=== PATIENT | female | born 1995 | race American Indian/Alaskan Native ===

== ENCOUNTER 2020-05-06 15:17 | Emergency (ER) | payer BC ==
[2020-05-06 16:30] LABS: Bacteria,Urine 3+ /HPF (Negative); Bilirubin,Urine NEG (Negative); Blood,Urine SM (Negative); Color,Urine Yellow (Yellow); Mucus,Urine 2+ /HPF; Urobilinogen,Urine < 2.0 mg/dL (<2.0)
[2020-05-06 16:41] LABS: HCG Qualitative,Urine Negative (Negative)
[2020-05-06 18:19] LABS: Basophils % (Auto) 0.4 % (0.0-1.8); Eosinophils % (Auto) 0.5 % (0.0-4.3); Hematocrit 36.4 % (30.3-42.9); Lymphocytes # (Auto) 2.6 K/mm3 (1.2-5.4); Lymphocytes % (Auto) 26.5 % (13.4-35.0); Mean Corpuscular HGB Conc 33 % (30-34); Mean Corpuscular Volume 84 fl (79-97); Monocytes # (Auto) 0.6 K/mm3 (0.0-0.8); Platelet Count 225 K/mm3 (140-440); Red Blood Count 4.36 M/mm3 (3.65-5.03); Red Cell Distribution Width 13.4 % (13.2-15.2)
[2020-05-06 18:24] LABS: Alanine Aminotransferase 12 units/L (7-56); Albumin 4.1 g/dL (3.9-5); Blood Urea Nitrogen 10 mg/dL (7-17); Calcium 9.7 mg/dL (8.4-10.2); Hemolysis Index 3
[2020-05-06 18:25] LABS: BUN/Creatinine Ratio 14
[2020-05-06] MEDS ORDERED: IBUPROFEN 600 MG TAB PO ONE (19:39)
[2020-05-06] MEDS ORDERED: ACETAMINOPHEN 500 MG TAB PO ONE (19:39)
--- NOTE | 2020-05-06 19:47 | Emergency Department Report ---
ED General Adult HPI - General Chief complaint: Abdominal Pain Stated complaint: RT LOWER PAIN/BACK PAIN Source: patient Mode of arrival: Ambulatory Limitations: No Limitations - History of Present Illness Initial comments: Patient is 24-year-old -[place] female with a history of hypertension and PE who presents to the ED with complaint of acute onset persistent nontrau matic left-sided mid posterior thoracic pain that radiates to the low back for the last 2 days. Patient states that the pain is worse with any movement or palpation of the low back. Patient states that she performs heavy lifting a lot at work and suspect that she may have strained the back due to heavy lifting but was unsure. Patient denies abdominal pain, nausea, vomiting, dizziness, syncope, fall, traumatic injury, numbness and tingling or weakness of lower extremities bilaterally, urinary frequency and urgency, dysuria, vaginal bleeding, vaginal discharge, chest pain or shortness of breath and neck pain. MD Complaint: left flank pain; left mid-posterior thoracic and low back pain -: Sudden, days(s) (2) Location: back Radiation: back (lower) Severity scale (0 -10): 7 Quality: aching, sharp Consistency: constant Improves with: none Worsens with: movement Associated Symptoms: denies other symptoms. denies: confusion, chest pain, cou gh, diaphoresis, fever/chills, headaches, loss of appetite, malaise, nausea/vomiting, rash, seizure, shortness of breath, syncope, weakness Treatments Prior to Arrival: none - Related Data Previous Rx's Medication Instructions Recorded Last Taken Type Cyclobenzaprine [Flexeril] 10 mg PO Q8H PRN #15 tablet 05/06/20 Unknown Rx Naproxen 500 mg PO Q12H PRN #30 tablet 05/06/20 Unknown Rx Allergies Allergy/AdvReac Type Severity Reaction Status Date / Time peach Allergy Hives Verified 05/06/20 15:26 Penicillins Allergy Hives Verified 05/06/20 15:26 ED Review of Systems ROS: Stated complaint: RT LOWER PAIN/BACK PAIN Other details as noted in HPI Constitutional: denies: chills, fever Eyes: denies: eye pain, eye discharge, vision change ENT: denies: ear pain, throat pain Respiratory: denies: cough, shortness of breath, wheezing Cardiovascular: denies: chest pain, palpitations Endocrine: no symptoms reported Gastrointestinal: denies: abdominal pain, nausea, diarrhea Genitourinary: denies: urgency, dysuria, discharge Musculoskeletal: back pain (mid posterior thoracic and lower back pain), arthralgia. denies: joint swelling Skin: denies: rash, lesions Neurological: denies: headache, weakness, paresthesias Psychiatric: denies: anxiety, depression Hematological/Lymphatic: denies: easy bleeding, easy bruising ED Past Medical Hx - Past Medical History Hx Hypertension: Yes Hx Pulmonary Embolism: Yes Additional medical history: BLOOD CLOTS IN LUNGS - Surgical History Additional Surgical History: C SECTION - Social History Smoking Status: Current Every Day Smoker Substance Use Type: None - Medications Home Medications: Home Medications Medication Instructions Recorded Confirmed Last Taken Type Cyclobenzaprine [Flexeril] 10 mg PO Q8H PRN #15 tablet 05/06/20 Unknown Rx Naproxen 500 mg PO Q12H PRN #30 tablet 05/06/20 Unknown Rx ED Physical Exam - General Limitations: No Limitations General appearance: alert, in no apparent distress - Head Head exam: Present: atraumatic, normocephalic, normal inspection - Eye Eye exam: Present: normal appearance, PERRL, EOMI Pupils: Present: normal accommodation - ENT ENT exam: Present: normal exam, normal orophraynx, mucous membranes moist, TM's normal bilaterally, normal external ear exam - Neck Neck exam: Present: normal inspection, full ROM - Respiratory Respiratory exam: Present: normal lung sounds bilaterally. Absent: respiratory distress, wheezes, rales, stridor, chest wall tenderness, accessory muscle use, prolonged expiratory - Cardiovascular Cardiovascular Exam: Present: regular rate, normal rhythm, normal heart sounds. Absent: systolic murmur, diastolic murmur, rubs, gallop - GI/Abdominal GI/Abdominal exam: Present: soft, normal bowel sounds. Absent: tenderness, guarding, rebound, hyperactive bowel sounds, organomegaly, mass - Extremities Exam Extremities exam: Present: normal inspection, full ROM, normal capillary refill. Absent: tenderness, pedal edema, joint swelling, calf tenderness - Back Exam Back exam: Present: normal inspection, full ROM, tenderness (Palpable mid posterior thoracic and lumbosacral paraspinal musculoskeletal tenderness), muscle spasm, paraspinal tenderness. Absent: CVA tenderness (R), CVA tenderness (L), vertebral tenderness - Neurological Exam Neurological exam: Present: alert, oriented X3, CN II-XII intact, normal gait, reflexes normal - Psychiatric Psychiatric exam: Present: normal affect, normal mood - Skin Skin exam: Present: warm, dry, intact, normal color. Absent: rash ED Course Vital Signs 05/06/20 05/06/20 15:26 19:56 Temperature 98.8 F 98.4 F Pulse Rate 80 91 H Respiratory 16 18 Rate Blood Pressure 127/85 Blood Pressure 129/79 [Right] O2 Sat by Pulse 55 L 100 Oximetry ED Medical Decision Making - Lab Data Result diagrams: 05/06/20 17:04 05/06/20 17:04 - Medical Decision Making This is 24-year-old -[place] female with a history of hypertension and PE who presents to the ED with complaint of acute onset persistent nontraumatic left-sided mid posterior thoracic pain that radiates to the low back for the last 2 days. Patient states that the pain is worse with any movement or palpation of the low back. Patient states that she performs heavy lifting a lot at work and suspect that she may have strained the back due to heavy lifting but was unsure. In the ED, patient is alert and oriented x3 and is not in distress. Patient was treated for pain in the ED and lab test results were reviewed and are all nonactionable. Patient was discharged home on pain medications and muscle relaxants and advised to follow-up with her primary care physician in 5 to 7 days for reevaluation or return to the ED immediately if symptoms get worse. - Differential Diagnosis muscle strain; UTI; Muscle spasm Critical care attestation.: If time is entered above; I have spent that time in minutes in the direct care of this critically ill patient, excluding procedure time. ED Disposition Clinical Impression: Spasm of thoracic back muscle, Strain of muscle, fascia and tendon of lower back, initial encounter Disposition: - TO HOME OR SELFCARE Is pt being admited?: No Does the pt Need Aspirin: No Condition: Stable Instructions: Muscle Cramps and Spasms, [id number], Muscle Strain, [id number], Low Back Sprain or Strain Rehab-SportsMed, Abdominal Pain (ED) Additional Instructions: All lab test results are unremarkable. Therefore take pain medications as needed with food, drink plenty of fluids and follow-up with your primary care physician in 5 to 7 days for reevaluation. Return to the ED immediately if symptoms get worse. Prescriptions: Cyclobenzaprine [Flexeril] 10 mg PO Q8H PRN #15 tablet PRN Reason: Muscle Spasm Naproxen 500 mg PO Q12H PRN #30 tablet PRN Reason: Pain , Severe (7-10) Referrals: NASIM HAY MD [Staff Physician] - 3-5 Days Time of Disposition: 19:40 Print Language: BRITISH
[2020-05-06 19:57] VITALS: BP 129/79
== END 2020-05-06 20:00 | disposition home or self-care (01) ==
LOC: ED 15:17
DX: S39.012A Strain of muscle, fascia and tendon of lower back, initial encounter (principal); M62.830 Muscle spasm of back; I10 Essential (primary) hypertension; F17.200 Nicotine dependence, unspecified, uncomplicated; Z86.711 Personal history of pulmonary embolism; Z98.890 Other specified postprocedural states; Z79.899 Other long term (current) drug therapy; Z88.0 Allergy status to penicillin; Z91.018 Allergy to other foods; X58.XXXA Exposure to other specified factors, initial encounter; Y93.89 Activity, other specified; Y92.89 Other specified places as the place of occurrence of the external cause; Y99.8 Other external cause status
CPT/HCPCS: 36415; 80053; 81001; 81025; 83690; 85025